=== PATIENT | female | born 1995 | race African-American/Black ===

== ENCOUNTER 2021-03-19 12:18 | Outpatient (CLI) | payer OTHER, SELFPAY ==
--- NOTE | ~2021-03-19 | XR_ITS ---
XR foot LT min 3V DATE: 03/19/2021 13:01 INDICATION: Left foot sprain, pain TECHNIQUE: 4 views COMPARISON: None FINDINGS: There is a chronic ununited fracture or accessory ossicle at the proximal lateral base of t he fifth metatarsal bone. No recent fracture or dislocation, periosteal reaction or bone destruction is noted. No erosive falcon e. 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 IMPRESSION: No recent fracture or dislocation Chronic ununited fracture or accessory ossicle at the base of the fifth metatar silvia
== END 2021-03-19 12:19 | disposition home or self-care (01) ==
LOC: ANHIMG 12:23
PROVIDERS: PCP Family Medicine; Visit Provider Family Medicine
DX: S93.602A Unspecified sprain of left foot, initial encounter (principal)
CPT/HCPCS: 73630

== ENCOUNTER 2021-08-21 18:15 | Emergency (ER) | payer OTHER, SELFPAY ==
[2021-08-21 18:23] VITALS: BP 145/82; PULSE 80; RESP 18; TEMP 36.9; O2SAT 100
--- NOTE | 2021-08-21 18:24 | ED.FEMALEGU ---
HPI - Female Genitourinary General Chief complaint: Urogenital-Female Stated complaint: Female Urogenital Time Seen by Provider: 08/21/21 18:20 Source: patient and RN notes reviewed Mode of arrival: ambulatory Limitations: no limitations History of Present Illness HPI Narrative: 26-year-old female presented for concern of STD exposure. She denies any urinary symptoms or vaginal symptoms. She states she was notified today her ex-boyfriend tested positive for chlamydia, their last intercourse was 1 month ago. She states a few years ago she had tested positive for chlamydia as well, and did not have symptoms at that time either. Related Data Home Medications Medication Instructions Recorded Confirmed eszopiclone 2 mg tablet 2 mg PO QHS PRN 03/19/21 08/21/21 sumatriptan succinate 50 mg tablet 50 mg PO ONCE PRN 03/19/21 08/21/21 L norgest/e.estradiol-e.estrad 1 tablet PO DAILY 08/21/21 08/21/21 [Ashlyna] Allergies Allergy/AdvReac Type Severity Reaction Status Date / Time No Known Allergies Allergy Verified 08/21/21 18:19 Review of Systems Review of Systems: CONSTITUTIONAL: Denies body aches, fever, chills, or sweats. CARDIOVASCULAR: Denies chest pain, palpitations, or edema. RESPIRATORY: Denies cough or dyspnea. GASTROINTESTINAL: Denies abdominal pain, nausea, vomiting, or diarrhea. GENITOURINARY: Denies vaginal discharge, dysuria, frequency, urgency, hematuria, flank pain SKIN: Denies rash, itching, or wounds. MUSCULOSKELETAL: Denies back pain or myalgia. [facility] Past Medical History Medical History Migraines Psychophysiologic insomnia Family History Family History Other Diabetes mellitus Hypertension Social History Social History Social History: Single Smoking status: Never smoker Second hand tobacco smoke exposure: No Alcohol intake: current Alcohol use details: Socially Substance use: never Substance use type: does not use Gender identity (if verbalized by the patient): Female Sexual Orientation (if Verbalized by the Patient): Straight or Heterosexual Comments At time of signature, I have reviewed and agree with nursing past medical, surgical, social and family history unless otherwise noted. Please see nursing chart for further information. There is no relevant family history pertinent to the presenting complaint Exam Narrative: GENERAL: Well-appearing and in no acute distress. HEAD: Normocephalic EYES: EOMI. . ENT: Mucous membranes pink and moist. NECK: Normal AROM. Supple. CHEST: No respiratory distress. Clear to auscultation. HEART: Regular rate and rhythm. ABDOMEN: Soft, nontender, nondistended, normal active bowel sounds. No CVA tenderness MUSCULOSKELETAL: No bony tenderness. SKIN: Warm, dry, no rash. NEURO: No focal deficits. Alert and oriented x3. Gait steady. PSYCH: Normal affect. No signs of depression or anxiety. Course Course Emergency Course: Patient is aware of diagnosis, understands and agrees to treatment plan. Anticipatory guidance given. Patient agrees to follow-up as directed and is aware of reasons to seek care at the emergency department. Portions of this record may have been created with voice recognition software Level of Care: Express Care Visit Vital Signs Vital signs: Vital Signs Temperature 98.5 F 08/21/21 18:23 Pulse Rate 80 08/21/21 18:23 Respiratory Rate 18 08/21/21 18:23 Blood Pressure 145/82 H 08/21/21 18:23 Pulse Oximetry 100 08/21/21 18:23 Temperature 98.5 F 08/21/21 18:23 Pulse Rate 80 08/21/21 18:23 Respiratory Rate 18 08/21/21 18:23 Blood Pressure 145/82 H 08/21/21 18:23 Pulse Oximetry 100 08/21/21 18:23 Reviewed MDM - Female Genitourinary MDM Narrative Medical decision making narrative: Patient presenting
== END 2021-08-21 18:38 | disposition home or self-care (01) ==
PROVIDERS: Emergency Provider Nurse Practitioner Family; PCP Family Medicine
DX: Z20.2 Contact with and (suspected) exposure to infections with a predominantly sexual mode of transmission (principal)
CPT/HCPCS: 81003; 87491; 87591; 87661; 99214; G0463

== ENCOUNTER → 2021-11-15 01:07 | Outpatient (CLI) | payer OTHER, SELFPAY ==
[2021-11-15 13:26] LABS: SARS-CoV-2 RNA PCR Positive
== END ==
PROVIDERS: PCP Nurse Practitioner Gerontology; Visit Provider Nurse Practitioner Gerontology
DX: U07.1 COVID-19 (principal)
CPT/HCPCS: C9803; U0003; U0005